=== PATIENT | male | born 1975 | race Caucasian/White ===

== ENCOUNTER 2020-09-04 08:37 | Observation (INO) | payer BC, OTHER ==
[2020-09-04] MEDS ORDERED: FAMOTIDINE 20 MG/2 ML VIAL IV STA (08:51)
[2020-09-04] MEDS ORDERED: METOCLOPRAMIDE 5 MG/ML 2 ML VIAL IVP STA (08:51)
[2020-09-04] MEDS ORDERED: ASPIRIN 81 MG PO STA (08:51)
--- NOTE | 2020-09-04 08:53 | ED ---
Chest Pain HPI - General Chief Complaint: Chest Pain Stated Complaint: Chest pain Time Seen by Provider: 09/04/20 08:47 Source: patient, RN notes reviewed Mode of arrival: ambulatory Limitations: no limitations - History of Present Illness Initial Comments: This a 44-year-old male presents emergency Department chief complaint abdominal, chest discomfort. Patient states started Tuesday night he states he feels like there is a lump in his upper abdomen, chest region. He states when he tries to eat or drink this makes it worse. He states it almost it's hard to get down. He did have an episode of emesis just prior arrival which seemed to help the symptoms. He denies any prior cardiac disease does have a history of asthma, current smoker. Patient states he has no history of diabetes, hypertension, hyperlipidemia or any medication currently takes Suboxone. Patient denies fevers chills no productive cough. Patient has EGD 15-20 years ago. Patient does admit that he has frequent heartburn - Related Data Allergies Allergy/AdvReac Type Severity Reaction Status Date / Time Penicillins Allergy Unknown Verified 09/04/20 08:42 Childhood Review of Systems ROS Statement: Those systems with pertinent positive or pertinent negative responses have been documented in the HPI. ROS Other: All systems not noted in ROS Statement are negative. EKG Findings - EKG Comments: EKG Findings:: EKG performed at 8:50 normal sinus rhythm rate of 72 MI 166 QRS 96 QT/QTC 354/3-[address] elevation or depression noted Past Medical History Additional Past Medical History / Comment(s): chronic pain History of Any Multi-Drug Resistant Organisms: None Reported Additional Past Surgical History / Comment(s): EGD Past Psychological History: No Psychological Hx Reported Smoking Status: Current every day smoker Past Alcohol Use History: None Reported Past Drug Use History: Marijuana General Exam Limitations: no limitations General appearance: alert, in no apparent distress Head exam: Present: atraumatic, normocephalic, normal inspection ENT exam: Present: normal exam, mucous membranes moist Neck exam: Present: normal inspection, full ROM. Absent: tenderness, meningismus, lymphadenopathy Respiratory exam: Present: normal lung sounds bilaterally. Absent: respiratory distress, wheezes, rales, rhonchi, stridor Cardiovascular Exam: Present: regular rate, normal rhythm, normal heart sounds. Absent: systolic murmur, diastolic murmur, rubs, gallop, clicks GI/Abdominal exam: Present: soft, tenderness (Epigastric), normal bowel sounds. Absent: distended, guarding, rebound, rigid Neurological exam: Present: alert Skin exam: Present: warm, dry, intact, normal color. Absent: rash Course Vital Signs 09/04/20 09/04/20 08:42 09:58 Temperature 97.9 F Pulse Rate 80 64 Respiratory 18 18 Rate Blood Pressure 129/79 138/86 O2 Sat by Pulse 98 98 Oximetry Chest Pain MDM - MDM 44-year-old presented for chest discomfort. This has been ongoing for last few days. His exacerbated by eating though patient has risk factors for cardiac disease. Patient 7 difficulty eating and drinking. Patient will be referred for cardiac rule out, further esophageal workup including possible EGD. Patient is a heavy smoker concerning for cancer. Disposition Clinical Impression: Chest pain, Esophagitis Disposition: ADMITTED IP TO THIS HOSP Condition: Fair Referrals: Victoriano Kelly MD [Primary Care Provider] - 1-2 days Time of Disposition: 10:55
[2020-09-04] MEDS ORDERED: SODIUM CHLORIDE 0.9% 500 ML 500 ML IV STA (09:04)
[2020-09-04 09:57] LABS: INR 0.9 (<1.2); Partial Thromboplastin Time 23.4 sec (22.0-30.0); Prothrombin Time 9.8 sec (9.0-12.0)
[2020-09-04 10:00] LABS: Basophils # (A) 0.1 k/uL (0-0.2); Basophils % (A) 0 %; Eosinophils # (A) 0.1 k/uL (0-0.7); Eosinophils % (A) 1 %; HCT 52.7 % (39.0-53.0); HGB 17.6 gm/dL (13.0-17.5); Lymphocytes % (A) 13 %; MCH 32.3 pg (25.0-35.0); MCHC 33.3 g/dL (31.0-37.0); MCV 96.8 fL (80.0-100.0); Mean Platelet Volume 6.9; Monocytes # (A) 1.1 k/uL (0-1.0); Monocytes % (A) 7 %; Neutrophils # (A) 11.7 k/uL (1.3-7.7); Neutrophils % (A) 78 %; Platelet Count 337 k/uL (150-450); RBC 5.45 m/uL (4.30-5.90); RDW 13.4 % (11.5-15.5); WBC 15.1 k/uL (3.8-10.6)
--- NOTE | 2020-09-04 10:04 | XR ---
EXAMINATION TYPE: XR chest 2V DATE OF EXAM: 09/04/2020 COMPARISON: None HISTORY: 44-year-old male with chest pain TECHNIQUE: PA and lateral views FINDINGS: Heart normal size. Aorta and pulmonary vasculature within normal limits. Mild hyperinflation. Hazy lo wer lung densities relating to overlying soft tissue. No consolidation or pleural effusion. IMPRESSION: Possible underlying COPD. No acute process otherwise seen.
[2020-09-04 10:17] LABS: ALT 27 U/L (4-49); AST 25 U/L (17-59); African American GFR (CKD) >90 (>60 ml/min/1.73 sqM); Albumin 4.5 g/dL (3.5-5.0); Alkaline Phosphatase 79 U/L (38-126); Anion Gap 8 mmol/L; Blood Urea Nitrogen 13 mg/dL (9-20); Calcium 10.4 mg/dL (8.4-10.2); Carbon Dioxide 27 mmol/L (22-30); Chloride 104 mmol/L (98-107); Glucose 117 mg/dL (74-99); Lipase 75 U/L (23-300); Magnesium 2.2 mg/dL (1.6-2.3); Non-African American GFR(CKD) >90 (>60 ml/min/1.73 sqM); Sodium 139 mmol/L (137-145); Total Bilirubin 0.5 mg/dL (0.2-1.3); Total Protein 7.7 g/dL (6.3-8.2)
[2020-09-04] MEDS ORDERED: NITROGLYCERIN SL TABS 0.4 MG TAB SUBLINGUAL PRN (11:00)
[2020-09-04] MEDS ORDERED: HEPARIN SODIUM 1,000 UN/ML (10ML VL) IV ONE (11:00)
[2020-09-04] MEDS ORDERED: HEPARIN SOD,PORK IN 0.45% NACL 25,000 UNIT in 0.45% NACL 1 250ML.BAG IV SCH (11:00)
--- NOTE | 2020-09-04 11:45 | P.HPIM ---
History of Present Illness H&P Date: 09/04/20 Chief Complaint: Chest pain This is a 44-year-old male with past medical history noted below who presented to the emergency room with chest pain. Patient said that his pain started on Tuesday night after having dinner when he started feeling that food is getting stuck behind his breast bone. He was also having some burping. Patient said that he did not make anything of that and he went to sleep the next day he was having same problem with both liquid and solid food. He said that he was unable to eat much for the past couple of days. He feels that food is getting stuck behind his breast bone and staking long time for it to pass. He otherwise denies any chest pain while not eating. He said that he is fairly active at work and does not have any exertional dyspnea or chest pain usually. He denies having any history of esophageal strictures. No prior surgeries. Patient was evaluated in the ER and chest x-ray showed no acute findings. 12 leads EKG was unremarkable. Initial troponin was negative. Review of Systems Review of system: 14 points review of systems were obtained and were negative except to what were mentioned in the HPI. Past Medical History Additional Past Medical History / Comment(s): chronic pain History of Any Multi-Drug Resistant Organisms: None Reported Additional Past Surgical History / Comment(s): EGD Past Psychological History: No Psychological Hx Reported Smoking Status: Current every day smoker Past Alcohol Use History: None Reported Past Drug Use History: Marijuana Medications and Allergies Home Medications Medication Instructions Recorded Confirmed Type Albuterol Sulfate [Proair Hfa] 2 puff INHALATION RT-Q4H PRN 09/04/20 09/04/20 History Buprenorphine HCl/Naloxone HCl 1 film SL DAILY 09/04/20 09/04/20 History [Suboxone 2 mg-0.5 mg Sl Film] Ergocalciferol [Vitamin D2 (1250 1,250 mcg PO CORADO 09/04/20 09/04/20 History Mcg = 49106 Iu)] Gabapentin 800 mg PO TID 09/04/20 09/04/20 History Modafinil [Provigil] 100 mg PO DAILY PRN 09/04/20 09/04/20 History Allergies Allergy/AdvReac Type Severity Reaction Status Date / Time Penicillins Allergy Unknown Verified 09/04/20 11:05 Childhood Physical Exam Vitals: Vital Signs Temp Pulse Resp BP Pulse Ox 09/04/20 09:58 64 18 138/86 98 09/04/20 08:42 97.9 F 80 18 129/79 98 Intake and Output 09/03/20 09/04/20 09/04/20 22:59 06:59 14:59 Other: Weight 113.398 kg General: The patient is awake and alert, in no distress Eye: there is normal conjunctiva bilaterally. Neck: The neck is supple, there is no JVD. Cardiovascular: Normal S1-S2, no S3-S4, no murmurs. Respiratory: Lungs clear to auscultation bilaterally Gastrointestinal: Abdomen is soft, nontender Musculoskeletal: There is no pedal edema. Neurological:. Speech is normal. Skin: Skin is warm and dry Results CBC & Chem 7: 09/04/20 09:08 09/04/20 09:08 Labs: Abnormal Lab Results - Last 24 Hours (Table) 09/04/20 09/04/20 Range/Units 09:08 09:08 WBC 15.1 H (3.8-10.6) k/uL Hgb 17.6 H (13.0-17.5) gm/dL Neutrophils # 11.7 H (1.3-7.7) k/uL Monocytes # 1.1 H (0-1.0) k/uL Glucose 117 H (74-99) mg/dL Calcium 10.4 H (8.4-10.2) mg/dL Assessment and Plan Assessment: This is a 44-year-old male who presented to the emergency room with odynophagia. Patient will be placed in observation for further evaluation of his medical problems noted below. 1. Odynophagia/dysphagia with both liquid and solid food. I would keep patient nothing by mouth. Order barium esophagogram. May consider GI consultation for EGD 2. History of pain medication abuse currently on Suboxone, advised patient to bring his medications from home as we do not carry it. In the hospital 3. Tobacco abuse, counseled extensively to quit. I would order nicotine patch 4. DVT prophylaxis with subcu Lovenox Today, I reviewed his medication list and lab work results. Patient pain is definitely not cardiac. ACS ruled out. We'll continue to monitor closely.
[2020-09-04] MEDS: SODIUM CHLORIDE 0.9% 1,000 ML IV SCH (12:01)
[2020-09-04] MEDS: PANTOPRAZOLE 40 MG/10 ML VIAL IVP SCH ×2 (12:01→21:07)
--- NOTE | 2020-09-04 14:23 | FL ---
EXAMINATION TYPE: FL UGI w esophagus DATE OF EXAM: 09/04/2020 COMPARISON: NONE HISTORY: Dysphagia for the last several days. TECHNIQUE: A single contrast UGI study is performed. A total of 1min 21 seconds of fluoroscopic john e was utilized during procedure and 69 images obtained. FINDINGS: The esophagus shows normal motility and emptying into the stomach. No evidence of hiatal hernia or s tricture noted. The stomach shows normal distensibility, peristalsis, and mucosal folds. No evidence of any mass or ulcer disease. No significant gastroesophageal reflux was seen during real time performance of this study. The duodenal bulb, sweep, and proximal small bowel loops are unremarkable. IMPRESSION: Normal upper GI study.
[2020-09-04] MEDS: ACETAMINOPHEN TAB 325 MG TAB PO PRN (15:39)
[2020-09-04] MEDS ORDERED: ALBUTEROL HFA INHALER INHALATION PRN (17:00)
[2020-09-04] MEDS: GABAPENTIN 400 MG CAP PO SCH (21:07)
[2020-09-05] MEDS: SODIUM CHLORIDE 0.9% 1,000 ML IV SCH (01:51)
[2020-09-05] MEDS: ACETAMINOPHEN TAB 325 MG TAB PO PRN ×2 (01:56→16:11)
[2020-09-05 07:22] LABS: Glucose,Whole Blood 93 mg/dL (75-99)
[2020-09-05] MEDS: PANTOPRAZOLE 40 MG/10 ML VIAL IVP SCH (08:49)
[2020-09-05] MEDS: GABAPENTIN 400 MG CAP PO SCH ×3 (08:50→21:29)
[2020-09-05] MEDS ORDERED: ASPIRIN 325 MG TAB PO SCH (09:00)
[2020-09-05 10:48] LABS: Chol/HDL Ratio 5.28; LDL Cholesterol,Calculated 152.2 mg/dL (0.0-131.0); VLDL Calculation 31.8 mg/dL (5.00-40.00)
[2020-09-05 11:28] LABS: Basophils # (A) 0.1 k/uL (0-0.2); Basophils % (A) 1 %; Eosinophils # (A) 0.2 k/uL (0-0.7); Eosinophils % (A) 2 %; HCT 50.1 % (39.0-53.0); HGB 17.5 gm/dL (13.0-17.5); Lymphocytes % (A) 19 %; MCH 33.3 pg (25.0-35.0); MCV 95.2 fL (80.0-100.0); Mean Platelet Volume 6.7; Monocytes # (A) 0.6 k/uL (0-1.0); Monocytes % (A) 6 %; Neutrophils # (A) 7.4 k/uL (1.3-7.7); Neutrophils % (A) 71 %; Platelet Count 295 k/uL (150-450); RBC 5.26 m/uL (4.30-5.90); RDW 12.6 % (11.5-15.5); WBC 10.5 k/uL (3.8-10.6)
[2020-09-05 11:46] LABS: African American GFR (CKD) >90 (>60 ml/min/1.73 sqM); Anion Gap 9 mmol/L; Blood Urea Nitrogen 12 mg/dL (9-20); Calcium 9.2 mg/dL (8.4-10.2); Carbon Dioxide 26 mmol/L (22-30); Chloride 102 mmol/L (98-107); Glucose 114 mg/dL (74-99); Non-African American GFR(CKD) >90 (>60 ml/min/1.73 sqM); Potassium 4.1 mmol/L (3.5-5.1); Sodium 137 mmol/L (137-145)
[2020-09-05] MEDS: CALCIUM CARBONATE 500 MG CHEWABLE PO PRN ×2 (11:48→19:31)
--- NOTE | 2020-09-05 13:16 | P.PN ---
Subjective Progress Note Date: 09/05/20 Principal diagnosis: Midsternal chest pain This is a 44-year-old white male with a past medical history of chronic pain syndrome and current smoker who reported to the emergency department yesterday with complaints of midsternal chest pain with eating or drinking. He states his symptoms started Tuesday night after eating and then subsided, Tuesday, and he had the pain after eating and same with yesterday. He states when he swallows he immediately gets a substernal pain that may last for several minutes and then feels like it is starting to come back up. He denies vomiting other than yesterday on his way to the emergency room. States he does have heartburn but it is infrequent and only with food. He does not take any daily medications, only uses Rolaids as needed with improvement in symptoms. States he has been taking Rolaids but is not helping. He had an EGD approximately 20 years ago for suspected ulcer, however he states he had no ulcer. He's had no previous colonoscopy. He underwent an upper GI swallow which was normal findings. He denies any coffee-ground emesis, hematemesis, dark or bloody stool. He denies any abdominal pain other than with eating. No fevers or chills. Objective - Vital Signs Vital signs: Vital Signs Temp 98.7 F 09/05/20 07:00 Pulse 63 09/05/20 07:00 Resp 16 09/05/20 07:00 BP 138/93 09/05/20 07:00 Pulse Ox 96 09/05/20 07:00 Intake & Output 09/04/20 09/05/20 09/05/20 18:59 06:59 18:59 Intake Total 1200 Balance 1200 Weight 113.398 kg Intake: IV 1200 Sodium Chloride 0.9% 1, 1200 000 ml @ 75 mls/hr IV . [id number] [facility] Rx#:[id number] Other: Voiding Method Toilet Toilet # Voids 0 3 - Exam General appearance: The patient is alert, oriented, in no acute distress. HET: Head is normocephalic and atraumatic. Conjunctiva pink. Sclera anicteric.. Neck: Supple without lymphadenopathy. Trachea midline. Heart: S1 S2. Regular rate and rhythm. Lungs: Clear to auscultation.. Abdomen: Soft, nontender, nondistended with bowel sounds. No guarding or rigidity. Extremities: Normal skin color and turgor. No pedal edema. Neurological: No focal deficits. Alert and oriented 3.. - Labs CBC & Chem 7: 09/05/20 11:07 09/05/20 11:07 Assessment and Plan (1) Odynophagia Narrative/Plan: 44-year-old male who presented to the emergency department with complaints of substernal pain with swallowing any solids or liquids. States symptoms began on Tuesday and have gotten worse. States it feels like it is getting stuck or hung up and then it comes back up when he is swallowing. Patient has a history of heartburn with certain foods, states he takes Rolaids with relief. However relates has not been helping. Has not had a previous episode like this before. He had an EGD approximately 20 years ago for suspected ulcer, however states he did not have an ulcer. The patient did have a normal upper GI study, however still experiencing significant substernal and epigastric pain with swallowing even liquids. Possible etiologies include stricture, peptic ulcer disease, gastritis, esophagitis or other etiologies. Patient would like to proceed with EGD, will plan for tomorrow. Current Visit: Yes Status: Acute Code(s): R13.10 - DYSPHAGIA, UNSPECIFIED SNOMED Code(s): 95954440 (2) Dysphagia Current Visit: Yes Status: Acute Code(s): R13.10 - DYSPHAGIA, UNSPECIFIED SNOMED Code(s): 50824313 (3) Heartburn Current Visit: Yes Status: Acute Code(s): R12 - HEARTBURN SNOMED Code(s): 38525322 (4) Chest pain Current Visit: Yes Status: Acute Code(s): R07.9 - CHEST PAIN, UNSPECIFIED SNOMED Code(s): 37638541 Plan: 1. Full liquid diet, may advance as tolerated 2. Nothing by mouth after midnight 3. Protonix 40 mg twice a day 4. Tums as needed 5. Will proceed with EGD tomorrow, procedure discussed with patient in detail including risks and benefits. Patient is willing to proceed. Thank you for this consultation, we will continue to follow. Dr. Leiva I agree with the dictator's note, documented as a scribe by Luiza Rodriguez.
--- NOTE | 2020-09-05 13:48 | P.PN ---
Subjective Progress Note Date: 09/05/20 Patient is doing well today. He is tolerating liquid diet with no difficulty. Objective - Vital Signs Vital signs: Vital Signs Temp 98.7 F 09/05/20 07:00 Pulse 63 09/05/20 08:00 Resp 16 09/05/20 07:00 BP 138/93 09/05/20 07:00 Pulse Ox 96 09/05/20 07:00 Intake & Output 09/04/20 09/05/20 09/05/20 18:59 06:59 18:59 Intake Total 1200 Balance 1200 Weight 113.398 kg Intake: IV 1200 Sodium Chloride 0.9% 1, 1200 000 ml @ 75 mls/hr IV . [id number] [facility] Rx#:[id number] Other: Voiding Method Toilet Toilet Toilet # Voids 0 3 - Exam General: The patient is awake and alert, in no distress Eye: there is normal conjunctiva bilaterally. Neck: The neck is supple, there is no JVD. Cardiovascular: Normal S1-S2, no S3-S4, no murmurs. Respiratory: Lungs clear to auscultation bilaterally Gastrointestinal: Abdomen is soft, nontender Musculoskeletal: There is no pedal edema. Neurological:. Speech is normal. Skin: Skin is warm and dry - Labs CBC & Chem 7: 09/05/20 11:07 09/05/20 11:07 Labs: Abnormal Lab Results - Last 24 Hours (Table) 09/04/20 09/05/20 Range/Units 09:08 11:07 Glucose 114 H (74-99) mg/dL Triglycerides 159.0 H (0.0-149.0) mg/dL Cholesterol 227 H (0-200) mg/dL LDL Cholesterol, Calc 152.2 H (0.0-131.0) mg/dL Assessment and Plan Assessment: This is a 44-year-old male who presented to the emergency room with odynophagia. Patient will be placed in observation for further evaluation of his medical problems noted below. 1. Odynophagia/dysphagia with both liquid and solid food. I would keep patient nothing by mouth. Upper GI/barium swallow with no abnormalities. Seen and evaluated by GI. Plan for EGD tomorrow.. 2. History of pain medication abuse currently on Suboxone, 3. Tobacco abuse, counseled extensively to quit. Nicotine patch ordered 4. DVT prophylaxis with subcu Lovenox Today, I reviewed his medication list and lab work results. Continue supportive care
[2020-09-05] MEDS: NICOTINE 14MG/24HR PATCH TRANSDERM SCH (14:51)
[2020-09-05] MEDS: NON FORMULARY DRUG (Buprenorphine Hcl/Naloxone Hcl [Suboxone 2 Mg-0.5 Mg Sl Film] 1 EACH F SUBLINGUAL SCH (15:20)
[2020-09-05] MEDS: PANTOPRAZOLE 40 MG TABLET PO SCH (17:31)
[2020-09-05] MEDS ORDERED: ATORVASTATIN 10 MG TAB PO SCH (21:00)
[2020-09-06] MEDS: ACETAMINOPHEN TAB 325 MG TAB PO PRN (02:03)
[2020-09-06 07:59] VITALS: BP 143/94; PULSE 64; RESP 16; TEMP 98.7
[2020-09-06] MEDS: PANTOPRAZOLE 40 MG TABLET PO SCH (08:16)
[2020-09-06] MEDS: CALCIUM CARBONATE 500 MG CHEWABLE PO PRN (08:16)
[2020-09-06] MEDS: NICOTINE 14MG/24HR PATCH TRANSDERM SCH (08:16)
[2020-09-06] MEDS: GABAPENTIN 400 MG CAP PO SCH (08:16)
[2020-09-06] MEDS: NON FORMULARY DRUG (Buprenorphine Hcl/Naloxone Hcl [Suboxone 2 Mg-0.5 Mg Sl Film] 1 EACH F SUBLINGUAL SCH (08:16)
--- NOTE | 2020-09-06 14:14 | P.DS ---
Providers Date of admission: 09/04/20 11:11 Expected date of discharge: 09/06/20 Attending physician: Kylie Hicks Consults: 09/04/20 15:24 Consult Physician Routine Consulting Provider: Joan De Anda Consult Reason/Comments: Odynophagia Do you want consulting provider notified?: Yes Primary care physician: Victoriano Kelly MD Hospital Course: Patient left the hospital AMA. He was scheduled for an EGD today that he was postponed an hour or 2 secondary to busy schedule in the endoscopy suite. Patient was frustrated and decided to leave AGAINST MEDICAL ADVICE. He verb alized understanding of the risks and that his workup is not complete yet. Patient Condition at Discharge: Fair Plan - Discharge Summary Discharge Rx Participant: No New Discharge Prescriptions: No Action Ergocalciferol [Vitamin D2 (1250 Mcg = 75838 Iu)] 1,250 mcg PO CORADO Modafinil [Provigil] 100 mg PO DAILY PRN PRN Reason: excessive sleepiness Albuterol Sulfate [Proair Hfa] 2 puff INHALATION RT-Q4H PRN PRN Reason: Shortness Of Breath Gabapentin 800 mg PO TID Buprenorphine HCl/Naloxone HCl [Suboxone 2 mg-0.5 mg Sl Film] 1 film SL DAILY Discharge Medication List Albuterol Sulfate [Proair Hfa] 2 puff INHALATION RT-Q4H PRN 09/04/20 [History] Buprenorphine HCl/Naloxone HCl [Suboxone 2 mg-0.5 mg Sl Film] 1 film SL DAILY 09/04/20 [History] Ergocalciferol [Vitamin D2 (1250 Mcg = 20798 Iu)] 1,250 mcg PO CORADO 09/04/20 [History] Gabapentin 800 mg PO TID 09/04/20 [History] Modafinil [Provigil] 100 mg PO DAILY PRN 09/04/20 [History] Follow up Appointment(s)/Referral(s): Victoriano Kelly MD [Primary Care Provider] - 1-2 days
== END 2020-09-06 12:30 ==
LOC: EC 08:37 → 6NMEDSUR 11:11
PROVIDERS: ADMIT Internal Medicine; ATTEND Internal Medicine
DX: R13.10 Dysphagia, unspecified (principal); R07.2 Precordial pain; R63.3 Feeding difficulties; Z20.822 Contact with and (suspected) exposure to COVID-19; G89.29 Other chronic pain; F17.200 Nicotine dependence, unspecified, uncomplicated; Z53.29 Procedure and treatment not carried out because of patient's decision for other reasons; Z88.0 Allergy status to penicillin; Z79.899 Other long term (current) drug therapy; Z86.59 Personal history of other mental and behavioral disorders
CPT/HCPCS: 96376 ×2; 96361; 96374; 96375; 99285; 36415; 94640; 93005; 80061; 80053; 80048; 83690; 83735; 84484; 85025 ×2; 85610; 85730; 87635; 74240; 71046; G0378 ×3; S4990 ×2; J2765; C9113 ×2

== ENCOUNTER → 2022-09-25 | Outpatient (CLI) | payer OTHER ==
[2022-09-25 13:26] LABS: Basophils # (A) 0.08 X 10*3/uL (0.00-0.10); Basophils % (A) 0.8 %; Eosinophils # (A) 0.66 X 10*3/uL (0.04-0.35); Eosinophils % (A) 6.5 %; HCT 50.4 % (39.6-50.0); HGB 17.6 d/dL (12.0-15.0); Lymphocytes # (A) 3.09 X 10*3/uL (0.90-5.00); Lymphocytes % (A) 30.3 %; MCH 33.3 pg (27.0-32.0); MCHC 34.9 d/dL (32.0-37.0); MCV 95.5 FL (80.0-97.0); Mean Platelet Volume 10.2 FL (9.5-12.2); Monocytes # (A) 0.95 X 10*3/uL (0.20-1.00); Monocytes % (A) 9.3 %; NRBC Per 100 WBC 0 X 10*3/uL (0.00-0.01); Neutrophils # (A) 5.36 X 10*3/uL (1.80-7.70); Neutrophils % (A) 52.4 %; Platelet Count 365 X 10*3/uL (140-440); RBC 5.28 X 10*6/uL (4.40-5.60); RDW 12.8 % (11.5-14.5); WBC 10.21 X 10*3/uL (4.50-10.00)
[2022-09-25 14:03] LABS: Blood Urea Nitrogen 13.7 mg/dL (9.0-27.0); Calcium 9.4 mg/dL (8.7-10.3); Carbon Dioxide 26.9 mmol/L (21.6-31.8); Chloride 104 mmol/L (96-109); Glucose 109 mg/dL (70-110); Potassium 4.7 mmol/L (3.5-5.5); Sodium 143 mmol/L (135-145)
== END | disposition home or self-care (01) ==
LOC: LABPAT 08:08
PROVIDERS: ATTEND Orthopaedic Surgery
DX: Z01.812 Encounter for preprocedural laboratory examination (principal); G56.02 Carpal tunnel syndrome, left upper limb
CPT/HCPCS: 36415; 80048; 85025

== ENCOUNTER 2022-10-13 06:13 | Day surgery (SDC) | payer BC, OTHER ==
[2022-10-07 11:27] VITALS: BMI 38.3
--- NOTE | 2022-10-12 09:38 | P.HPOR ---
History of Present Illness H&P Date: 10/12/22 Subjective: This is a 46 year old male that presents today for initial evaluation regarding a several year history of progressively worsening left and right hand paresthesias in the thumb, index, middle and ring fingers. The patient has tried injections in the past which have provided temporary relief of his symptoms. 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 He states the thumb, index middle and ring finger are involved and he has noticed weakness that has started to progress to both hands with pinch and grasp. He states they often fall asleep at night time and while driving. The patient denies any inciting event or neck pain. He states his left side is worse than his right side. Physical Examination: LUE: AIN/PIN/Radial/Ulnar/Median motor intact. Radial/Ulnar/Median SILT. 2+/4 Radial/Ulnar pulses palpated. 5/5 APB, 5/5 FDI. Negative Finkelsteins, negative CMC grind, positive Durkan's compression. Early thenar atrophy present RUE: AIN/PIN/Radial/Ulnar/Median motor intact. Radial/Ulnar/Median SILT. 2+/4 Radial/Ulnar pulses palpated. 5/5 APB, 5/5 FDI. Negative Finkelsteins, negative CMC grind, positive Durkan's compression. Early thenar atrophy present Impression: 1.) Left carpal tunnel syndrome 2.) Right carpal tunnel syndrome Plan: Diagnosis and treatment options were discussed with the patient. The patient has failed conservative treatment and would like to pursue a left endoscopic vs open carpal tunnel release followed by the same for his right side 2 weeks later. Risks and benefits of surgery including bleeding, infection, damage to surrounding tissue, need for further surgery, possible need to convert to open procedure, residual numbness were discussed and the patient wished to go forward with surgery. I anticipate 4 weeks off work, this can be extended if needed at first post op appointment. CC: Don Fernandes MD -Gregory Camara DO Orthopedic Hand/Upper Extremity Surgeon Past Medical History Past Medical History: Diabetes Mellitus, Hyperlipidemia Additional Past Medical History / Comment(s): chronic pain. NEW DX PRE DIABETIC History of Any Multi-Drug Resistant Organisms: None Reported Past Surgical History: Orthopedic Surgery Additional Past Surgical History / Comment(s): EGD. LT [facility] Past Anesthesia/Blood Transfusion Reactions: No Reported Reaction Smoking Status: Current every day smoker - Past Family History Mother Family Medical History: No Reported History Medications and Allergies Home Medications Medication Instructions Recorded Confirmed Type Albuterol Sulfate [Proair Hfa] 2 puff INHALATION Q4H PRN 09/04/20 10/07/22 History Gabapentin 800 mg PO TID 09/04/20 10/07/22 History buPROPion XL [Wellbutrin XL] 300 mg PO QAM 09/24/22 10/07/22 History Atorvastatin [Lipitor] 40 mg PO HS 10/07/22 10/07/22 History metFORMIN HCL [Glucophage] 500 mg PO BID 10/07/22 10/07/22 History Allergies Allergy/AdvReac Type Severity Reaction Status Date / Time Penicillins Allergy Unknown Verified 10/07/22 11:20 Childhood Physical Examination Osteopathic Statement: *. No significant issues noted on an osteopathic structural exam other than those noted in the History and Physical/Consult.
[~2022-10-13 06:13] MED LIST: Pre Op ABX Message 1 EACH MISC MISCELLANE ONE
[2022-10-13] MEDS ORDERED: LACTATED RINGERS 1,000 ML IV SCH (06:35)
[2022-10-13] MEDS ORDERED: LIDOCAINE 1% (10MG/ML) FOR IV START INTRADERMA PRN (06:35)
[2022-10-13] MEDS ORDERED: HYDROmorphone 0.5 MG/0.5 ML SYRINGE IVP PRN (06:35)
[2022-10-13 06:48] LABS: Glucose,Whole Blood 107 mg/dL (70-110)
[2022-10-13 06:49] VITALS: TEMP 97.1
[2022-10-13] MEDS ORDERED: ONDANSETRON 4 MG/2 ML VIAL ONE (06:52)
[2022-10-13] MEDS ORDERED: DEXAMETHASONE SOD PHOSPHATE 4 MG/ML 1 ML VIAL IVP ONE (06:54)
[2022-10-13] MEDS ORDERED: ONDANSETRON 4 MG/2 ML VIAL IVP ONE (06:54)
[2022-10-13] MEDS ORDERED: BUPIVACAINE (PF) 0.5% 30 ML VIAL SQ ONE ×2 (07:19→07:28)
[2022-10-13] MEDS ORDERED: LIDOCAINE 2% INJ 20 MG/ML SQ ONE ×2 (07:19→07:28)
[2022-10-13] MEDS ORDERED: fentaNYL (PF) 50 MCG/ML 2 ML AMP ONE (07:21)
[2022-10-13] MEDS ORDERED: PROPOFOL 10 MG/ML 20 ML VIAL IV ONE (07:21)
[2022-10-13] MEDS ORDERED: MIDAZOLAM 2 MG/2 ML VIAL ONE (07:21)
--- NOTE | 2022-10-13 07:56 | P.OP ---
Date of Procedure: 10/13/22 Preoperative Diagnosis: Right carpal tunnel syndrome Postoperative Diagnosis: Right carpal tunnel syndrome Procedure(s) Performed: Right endoscopic carpal tunnel release Anesthesia: MAC Surgeon: Gregory Camara Estimated Blood Loss (ml): 0 Pathology: none sent Condition: stable Disposition: PACU Description of Procedure: This is a 46 year old male who presents today for a right endoscopic carpal tunnel release after having failed conservative treatment in the past. Risks and benefits of surgery were discussed with the patient including bleeding, damage to surrounding tissue, infection, need to convert to open procedure, need for further surgery as well as risks of anesthesia including pulmonary embolism and even and the patient wished to proceed with surgical intervention. The patients was seen in the pre-operative area by myself. Consent and H&P were completed and updated. The correct extremity was marked in the pre-operative area by myself and all other questions were answered. Operative Narrative: The patient was brought to the operating room by the department of anesthesia. They remained on the portable stretcher and a rolling hand table was brought to the side of the operative extremity. Pre-operative time out was performed indicating the correct patient, procedure and laterality. All in the room agreed. The patient was then drifted off to sleep by the department of anesthesia. MAC anesthesia was utilized and a 50:50 mixture of 1% Lidocaine and 0.5% bupivacaine was injected into the subcutaneous tissues of the palmar skin, 8ccs total. A nonsterile tourniquet was then applied to the operative extremity and the right upper extremity was then prepped and draped in normal sterile fashion. The operative extremity was the exsanguinated with an esmarch bandage and the tourniquet was inflated to 250mmHg. 15 blade scalpel was utilized to make a transverse incision on the palmar skin just ulnar to the palmaris longus tendon at the level of the distal wrist crease. Ragnell retractor was then placed radially and blunt dissection was performed to reveal the distal forearm fascia. This was lifted with fine Papo pick ups and Littler tenotomy scissors were then used to open the forearm fascia transversely and a double skin hook was then placed. Hamate finder was placed into the carpal tunnel and then sequential sized dilators were inserted followed by the synovial elevator to separate the flexor tenosynovium from the undersurface of the transverse carpal ligament and a washboard texture was felt. The MicroAire endoscopic carpal tunnel release system gun was the then inserted into the carpal tunnel hugging the deep portion of the transverse carpal ligament in line with the base of the ring finger. Transverse fibers of the ligament were directly visualized. Pressure was applied on the palm to reveal the distal extent of the transverse carpal ligament. The blade was then deployed and the distal half of the transverse carpal ligament was released. The scope was then brought distal again and remaining transverse fibers were incised with the blade. The proximal half of the transverse carpal ligament was then divided and again the scope was advanced distal and remaining transverse fibers were incised with the blade. The radial and ulnar leaflets were directly visualized and mobile consistent with complete release. Tenotomy scissors were then utilized to release the remaining distal forearm fascia under direct visualization taking care to preserve the palmar cutaneous branch of the median nerve. Skin closure was performed with interrupted 4-0 Monocryl suture followed by Mastisol and steri strips. Sterile dressing was applied consisting of adaptic, 4x4s, Webril, and an ayanna bandage. Tourniquet was let down and the hand immediately was well perfused. The patient was then woken by the department of anesthesia and transferred to PACU in stable condition. Gregory Camara D.O. Orthopedic Hand/Upper Extremity Surgeon
[2022-10-13 08:24] VITALS: BP 99/67; PULSE 56; RESP 18
== END 2022-10-13 08:34 | disposition home or self-care (01) ==
LOC: OR 06:13
PROVIDERS: ATTEND Orthopaedic Surgery Hand Surgery
DX: G56.01 Carpal tunnel syndrome, right upper limb (principal); E78.5 Hyperlipidemia, unspecified; E11.9 Type 2 diabetes mellitus without complications; G89.29 Other chronic pain; F17.200 Nicotine dependence, unspecified, uncomplicated; Z79.51 Long term (current) use of inhaled steroids; Z79.84 Long term (current) use of oral hypoglycemic drugs; Z88.0 Allergy status to penicillin; Z79.899 Other long term (current) drug therapy
CPT/HCPCS: 29848; J2001; J2250; J1100; J2405; J3010; J2704; J0665